=== PATIENT | male | born 1980 | race Native Hawaiian/Other Pacific Islander ===

== ENCOUNTER 2016-05-19 09:57 | Emergency (ER) | payer OTHER ==
[~2016-05-19] VITALS: Ht 172.7 cm; Wt 99.8 kg
[2016-05-19] MEDS ORDERED: ORPHENADRINE C100 M1 PO (10:12)
[2016-05-19] MEDS ORDERED: HYDR10TA47 PO (11:33)
[2016-05-19] MEDS ORDERED: IBUPROFEN PO (11:33)
== END 2016-05-19 11:33 | disposition home or self-care (01) ==
LOC: ED 09:57
DX: M54.9 Dorsalgia, unspecified (principal); M79.1 Myalgia; W20.8XXA Other cause of strike by thrown, projected or falling object, initial encounter; Y92.89 Other specified places as the place of occurrence of the external cause
CPT/HCPCS: 99283

== ENCOUNTER 2017-01-05 09:39 | Emergency (ER) | payer OTHER ==
[~2017-01-05] VITALS: Ht 177.8 cm; Wt 93.9 kg
[~2017-01-05 09:39] MED LIST: HYDR10TA47 PO; IBUPROFEN PO; ORPHENADRINE C100 M1 PO
== END 2017-01-05 12:25 | disposition home or self-care (01) ==
LOC: ED 09:39
PROC: 2W3DX1Z Immobilization of Left Lower Arm using Splint (ICD-10-PCS; principal; 2017-01-05)
DX: S62.307A Unspecified fracture of fifth metacarpal bone, left hand, initial encounter for closed fracture (principal); W18.2XXA Fall in (into) shower or empty bathtub, initial encounter; Y92.098 Other place in other non-institutional residence as the place of occurrence of the external cause
CPT/HCPCS: 96372; 99283; J1885

== ENCOUNTER 2017-05-10 15:14 | Emergency (ER) | payer OTHER ==
[~2017-05-10] VITALS: Ht 177.8 cm; Wt 99.8 kg
== END 2017-05-10 15:44 | disposition home or self-care (01) ==
LOC: ED 15:14
DX: K08.89 Other specified disorders of teeth and supporting structures (principal)
CPT/HCPCS: 99281

== ENCOUNTER 2017-10-05 15:41 | Emergency (ER) | payer OTHER ==
[~2017-10-05] VITALS: Ht 177.8 cm; Wt 99.8 kg
[2017-10-05 16:00] VITALS: BP 148/97; TEMP 98.7
== END 2017-10-05 17:10 | disposition home or self-care (01) ==
LOC: ED 15:41
DX: M54.5 Low back pain (principal); W17.89XA Other fall from one level to another, initial encounter; W30.89XA Contact with other specified agricultural machinery, initial encounter
CPT/HCPCS: 99281

== ENCOUNTER 2020-04-28 11:58 | Emergency (ER) | payer OTHER ==
[~2020-04-28] VITALS: Ht 177.8 cm; Wt 92.1 kg
[2020-04-28 14:00] VITALS: BP 137/89; TEMP 99.1
== END 2020-04-28 14:00 | disposition home or self-care (01) ==
LOC: ED 11:58
DX: L02.415 Cutaneous abscess of right lower limb (principal); U07.1 COVID-19
CPT/HCPCS: 87635; 96372; 99282; 99283; J0696; U0003